=== PATIENT | female | born 1995 | race Caucasian/White ===

== ENCOUNTER 2018-03-25 19:58 | Emergency (ER) | payer SELFPAY ==
[~2018-03-25] VITALS: Ht 172.7 cm; Wt 56.7 kg
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
[2018-03-25 20:26] LABS: BASOPHILS % (AUTO) 0.5 % (0.0-2.0); EOSINOPHILS % (AUTO) 0.7 % (0.0-7.0); HEMATOCRIT 38.9 % (31.2-41.9); HEMOGLOBIN 13.3 g/dL (10.9-14.3); LYMPHOCYTES # (AUTO) 2.5 K/uL (20.0-40.0); LYMPHOCYTES % (AUTO) 47.6 % (20.5-51.5); MEAN CORPUSCULAR HEMOGLOBIN 28.4 uug (24.7-32.8); MEAN CORPUSCULAR HGB CONC 34 g/dL (32.3-35.6); MEAN CORPUSCULAR VOLUME 82.8 fL (75.5-95.3); MONOCYTES # (AUTO) 0.2 K/uL (2.0-10.0); MONOCYTES % (AUTO) 4.6 % (0.0-11.0); NEUTROPHILS # (AUTO) 2.4 K/uL (1.8-8.9); NEUTROPHILS % (AUTO) 46.6 % (38.5-71.5); PLATELET COUNT (AUTO) 245 K/uL (179-408); WHITE BLOOD COUNT (AUTO) 5.2 K/uL (3.8-11.8)
[2018-03-25] MEDS ORDERED: ONDANSETRON ODT 4 MG TAB.RAPDIS ONE (20:26)
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
[2018-03-25] MEDS: ONDANSETRON ODT 4 MG TAB.RAPDIS SL ONE (20:33)
[2018-03-25 20:40] LABS: CARBON DIOXIDE 29 mmol/L (21-32); CHLORIDE 104 mmol/L (98-107); CREATININE 0.7 mg/dL (0.6-1.3); GLUCOSE 87 mg/dL (74-106); POTASSIUM 3.5 mmol/L (3.5-5.1); UREA NITROGEN, BLOOD 17 mg/dL (7-18)
[2018-03-25 20:43] LABS: ALANINE AMINOTRANSFERASE 18 U/L (14-59); ALKALINE PHOSPHATASE 67 U/L (50-136); ASPARTATE AMINOTRANSFERASE 17 U/L (15-37); BILIRUBIN,DIRECT 0.1 mg/dL (0.0-0.2); BILIRUBIN,TOTAL 0.4 mg/dL (0.2-1.0); TOTAL PROTEIN, SERUM 7.9 g/dL (6.4-8.2)
[2018-03-25 20:44] LABS: ACETAMINOPHEN < 2.0 ug/mL (10-30)
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
[2018-03-25 20:53] LABS: ETHANOL < 3 MG/DL (0-0)
[2018-03-25 20:55] LABS: THYROID STIMULATING HORMONE 4.571 mIU/mL (0.358-3.740)
--- NOTE | 2018-03-25 21:15 | NUR ---
PT IN BED RESTING QUIETLY WITH EYES CLOSED. LUNG SOUNDS ARE CLEAR AND BREATH SOUNDS ARE EVEN AND UNLABORED. NO SIGNS OF DISTRESS WITNESS AT THIS TIME.
--- NOTE | 2018-03-25 23:40 | NUR ---
PT REQUESTING TO BE DISCHARGED HOME. MADE AWARE.
--- NOTE | 2018-03-26 00:20 | NUR ---
Patient discharged to home in stable conditon. Patient reported being pain free prior to discharge. PO challenge successfully passed. Written and verbal after care instructions given. Patient verbalizes understanding of instructions. Patient able to ambulate unassisted with a steady gait. Patient left with all personal belongings. Addendum: 03/26/18 at 0057 by JCALLOWAY MIRA CONTACT INFORMATION GIVEN TO PT UPON DISCHARGE. PT SAYS THAT SHE WILL CONTACT MIRA ON HER OWN.
[2018-03-26 01:04] VITALS: BP 105/78
== END 2018-03-26 00:20 | disposition home or self-care (01) ==
LOC: ER 20:02
DX: S50.11XA Contusion of right forearm, initial encounter (principal); T74.21XA Adult sexual abuse, confirmed, initial encounter; F11.10 Opioid abuse, uncomplicated; Z88.8 Allergy status to other drugs, medicaments and biological substances; Y09 Assault by unspecified means
CPT/HCPCS: 36415; 70030-TC; 71045; 84443; 85025; 93005; A4663; G0480; G0480-TC; J7030; Q0162